=== PATIENT | female | born 1995 | race American Indian/Alaskan Native ===

== ENCOUNTER 2018-12-11 11:30 | Emergency (ER) | payer OTHER ==
--- NOTE | 2018-12-11 11:37 | Event Note ---
ED Screening Note ED Screening Note: cough for over a week subjective fever congestion, rhinorrhea no sick contact LNMP: december 01 no PMHx no allergies to meds non smoker occ drinker no drug use This initial assessment/diagnostic orders/clinical plan/treatment(s) is/are subject to change based on patients health status, clinical progression and re- assessment by fellow clinical providers in the ED. Further treatment and workup at subsequent clinical providers discretion. Patient/guardian urged not to elope from the ED as their condition may be serious if not clinically assessed and managed. Initial orders include: CXR signed consent form for XR stating not
--- NOTE | 2018-12-11 12:20 | XRay Report ---
CHEST 2 VIEWS INDICATION: cough x 1 week. COMPARISON: None FINDINGS: Support devices: None. Heart: Within normal limits. Lungs/pleura: No acute air space or interstitial disease. No pneumothorax. Additional findings: None. IMPRESSION: 1. No acute findings. Signer Name: Iker Franks MD Signed: 12/11/2018 12:15 PM Workstation Name: [id number]
[2018-12-11] MEDS ORDERED: ROBITUSSIN AC PO ONE (12:23)
--- NOTE | 2018-12-11 12:54 | Emergency Department Report ---
Minor Respiratory - HPI Chief Complaint: Upper Respiratory Infection Stated Complaint: COLD SYMPTOMS Time Seen by Provider: 12/11/18 11:35 Duration: 3 Days Minor Respiratory: Yes Cough, Yes Fever (resolved), No Rhinorrhea, No Sore Throat, No Able to Tolerate Fluids, No Ear Pain, No Sick Contacts, No Hemoptysis, No Chest Pain, No Shortness of Breath Other History: 23-year-old female presents with a nonproductive cough for the past week. Patient states that she had a fever last week which has resolved, she denies any other symptoms today. Denies shortness of breath denies chest pain ED Review of Systems ROS: Stated complaint: COLD SYMPTOMS Other details as noted in HPI Comment: All other systems reviewed and negative ED Past Medical Hx - Past Medical History Previous Medical History?: No - Surgical History Past Surgical History?: No - Social History Smoking Status: Never Smoker Substance Use Type: Alcohol - Medications Home Medications: Home Medications Medication Instructions Recorded Confirmed Last Taken Type Benzonatate [Tessalon Perles] 100 mg PO Q8HR #20 capsule 12/11/18 Unknown Rx guaiFENesin/CODEINE [Robitussin AC] 5 ml PO TID #60 ml 12/11/18 Unknown Rx Minor Respiratory Exam - Exam General: Vital signs noted. No distress. Alert and acting appropriately. HEENT: Yes Moist Mucous Membranes, No Pharyngeal Erythema, No Pharyngeal Exudates, No Rhinorrhea, No Conjuctival Injection, No Frontal Tenderness, No Maxillary Tenderness Ear: Neither TM Bulge, Neither TM Erythema, Neither EAC Pain, Neither EAC Discharge Neck: Yes Supple, No Adenopathy Lungs: Yes Good Air Exchange, No Wheezes, No Ronchi, No Stridor, No Cough, No Labored Respirations, No Retractions, No Use of Accessory Muscles, No Other Abnormal Lung Sounds Heart: Yes Regular, No Murmur Abdomen: Yes Normal Bowel Sounds, No Tenderness, No Peritoneal Signs Skin: No Rash, No Edema Neurologic: Alert and oriented, no deficits. Musculoskeletal: Unremarkable. ED Course Vital Signs 12/11/18 11:35 Temperature 98.1 F Pulse Rate 100 H Respiratory 18 Rate Blood Pressure 135/74 O2 Sat by Pulse 99 Oximetry ED Medical Decision Making - Radiology Data Radiology results: report reviewed, image reviewed INDICATION: cough x 1 week. COMPARISON: None FINDINGS: Support devices: None. Heart: Within normal limits. Lungs/pleura: No acute air space or interstitial disease. No pneumothorax. Additional findings: None. IMPRESSION: 1. No acute findings. Signer Name: Iker Franks MD Signed: 12/11/2018 12:15 PM Workstation Name: [id number] Transcribed By: PARKER Dictated By: Iker Franks MD Electronically Authenticated By: Iker Franks MD Signed Date/Time: 12/11/18 1215 - Medical Decision Making 23-year-old female presents to bronchitis. Chest x-ray shows no acute findings. Patient received Tylenol with Codeine here in the ED. Symptoms and lower respiratory distress speaking in clear sentences Discussed patient's symptoms may last up to 2 weeks. Discussed follow-up with primary care physician. Critical care attestation.: If time is entered above; I have spent that time in minutes in the direct care of this critically ill patient, excluding procedure time. ED Disposition Clinical Impression: Bronchitis Disposition: DC-01 TO HOME OR SELFCARE Is pt being admited?: No Does the pt Need Aspirin: No Condition: Stable Instructions: Chronic Bronchitis (ED), Upper Respiratory Infection (ED), Viral Syndrome (ED) Additional Instructions: Make sure to follow up with the primary care physician as discussed. Take all your medications as you've been prescribed. If you have any worsening symptoms or develop new symptoms please return to ED immediately. Prescriptions: guaiFENesin/CODEINE [Robitussin AC] 5 ml PO TID #60 ml Benzonatate [Tessalon Perles] 100 mg PO Q8HR #20 capsule Referrals: LANDON FORTUNE MD [Staff Physician] - 3-5 Days [facility] [Provider Group] - 3-5 Days Forms: Accompanied Note, Work/School Release Form(ED) Time of Disposition: 13:04
[2018-12-11 13:20] VITALS: BP 135/71
== END 2018-12-11 13:19 | disposition home or self-care (01) ==
LOC: ED 11:30
DX: J40 Bronchitis, not specified as acute or chronic (principal)
CPT/HCPCS: 71046